=== PATIENT | male | born 1955 | race Hispanic/Latino ===

== ENCOUNTER → 2017-10-09 | Outpatient (CLI) | payer MEDICARE | END | disposition home or self-care (01) | LOC: RAH 10:19 | PROVIDERS: ATTEND Family Medicine | DX: K80.20 Calculus of gallbladder without cholecystitis without obstruction (principal) | CPT/HCPCS: 76700 ==

== ENCOUNTER → 2018-02-13 | Outpatient (CLI) | payer MEDICARE | END | disposition home or self-care (01) | LOC: OIH 10:20 | PROVIDERS: ATTEND Family Medicine | DX: R10.31 Right lower quadrant pain (principal); I10 Essential (primary) hypertension; E78.5 Hyperlipidemia, unspecified; Z87.448 Personal history of other diseases of urinary system | CPT/HCPCS: 74176 ==